=== PATIENT | female | born 1985 | race Caucasian/White ===

== ENCOUNTER → 2017-05-11 | Outpatient (CLI) | payer OTHER ==
--- NOTE | 2017-05-11 22:52 | MR ---
EXAMINATION TYPE: MR angio head wo con DATE OF EXAM: 05/11/2017 COMPARISON: 05/27/2015 HISTORY: 32-year-old female with migraines without aura, family history of stroke. TECHNIQUE: High-resolution 3-D time of flight images focusing on the [place] of [place] were performed without contrast. 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 The re is also a low takeoff of the left posterior-inferior cerebellar artery likely from the upper V3 se gment left vertebral artery. No aneurysmal change, significant stenosis, or arterial occlusion is see n. IMPRESSION: Some congenital variation as above. No aneurysmal change or significant stenosis seen.
== END | disposition home or self-care (01) ==
LOC: RADMRIMAIN 19:12
PROVIDERS: ATTEND Family Medicine
DX: G43.009 Migraine without aura, not intractable, without status migrainosus (principal); Z82.3 Family history of stroke
CPT/HCPCS: 70544

== ENCOUNTER → 2021-05-24 | Outpatient (CLI) | payer OTHER ==
--- NOTE | 2021-05-25 03:38 | MR ---
EXAMINATION TYPE: MR angio head wo con DATE OF EXAM: 05/24/2021 COMPARISON: 05/11/2017 HISTORY: Cervicogenic headache MR angiographic images were obtained of the intracerebral arterial circulation. There is arterial flow in the anterior middle and posterior cerebral arteries. There is arterial flow in the vertebral basilar artery system. There is no mass effect. No evidence of intracranial aneurys m or neovascularity. No evidence of hemodynamic stenosis. The left posterior cerebral artery fills th rough the left posterior communicating artery entirely. IMPRESSION: Negative MR angiogram of the brain.
== END | disposition home or self-care (01) ==
LOC: RADMRIMAIN 18:01
PROVIDERS: ATTEND Internal Medicine
DX: G44.86 Cervicogenic headache (principal); Z82.49 Family history of ischemic heart disease and other diseases of the circulatory system
CPT/HCPCS: 70544